=== PATIENT | female | born 1930 | race Caucasian/White ===

== ENCOUNTER 2018-08-21 15:36 | Observation (INO) ==
[2018-08-21 16:42] LABS: Basophils % 0.6 % (0.0-0.8); Eosinophils # 0.1 10*3/uL (0.0-0.87); Eosinophils % 1.2 % (0.00-10.9); Hemoglobin 12.5 GM/DL (12.0-16.0); Immature Granulocytes % 0.2 %; Immature Granulocytes Absolute 0.01 #; Lymphocytes # 1.4 10*3/uL (1.4-4.0); Lymphocytes % 27.3 % (21.3-54.2); Mean Corpuscular HGB Conc 32.1 GM/DL (32-36); Mean Corpuscular Volume 95.4 FL (87-102); Mean Platelet Volume 10.7 FL (9.6-12.0); Neutrophils % 59.7 % (38.7-73.9); Platelet Count 216 T/CUMM (130-400); Red Blood Count 4.09 MC/CUMM (3.8-5.5); Red Cell Distribution Width 13.9 % (9.3-17.3); White Blood Count 5.1 T/CUMM (4-12)
[2018-08-21 16:57] LABS: Alanine Aminotransferase 17 U/L (13-56); Albumin 2.9 G/DL (3.4-5.0); Alkaline Phosphatase 116 U/L (45-117); Aspartate Amino Transferase 26 U/L (0-37); Blood Urea Nitrogen 8 MG/DL (7-18); Calcium 8.9 MG/DL (8.5-10.1); Glucose 84 MG/DL (74-106); Osmolality,Calculated 275.4 MOS/KG (273-304); Total Protein 7.1 G/DL (6.4-8.3)
[2018-08-21] MEDS ORDERED: traMADol 50 MG TABLET PO PRN (17:36)
[2018-08-21] MEDS ORDERED: ONDANSETRON 4 MG/2 ML VIAL IV PRN (17:36)
[2018-08-21] MEDS ORDERED: ACETAMINOPHEN 325 MG TABLET PO PRN (17:36)
[2018-08-21] MEDS ORDERED: FUROSEMIDE 40 MG/4 ML VIAL IV STA (18:26)
[2018-08-21] MEDS: SODIUM CHLORIDE 0.9% 1,000 ML IV SCH (19:03)
[2018-08-21] MEDS: DOCUSATE SODIUM 100 MG CAPSULE PO SCH (20:56)
[2018-08-21] MEDS ORDERED: ENOXAPARIN 40 MG/0.4 ML SYRINGE SUBCUT SCH (21:00)
[2018-08-22 04:37] LABS: Basophils # 0.1 10*3/uL (0.0-0.2); Basophils % 0.9 % (0.0-0.8); Eosinophils # 0.1 10*3/uL (0.0-0.87); Eosinophils % 1.4 % (0.00-10.9); Hematocrit 36.3 VOL% (35.7-47.0); Immature Granulocytes % 0.2 %; Immature Granulocytes Absolute 0.01 #; Lymphocytes # 1.5 10*3/uL (1.4-4.0); Lymphocytes % 26.4 % (21.3-54.2); Mean Corpuscular HGB Conc 33.1 GM/DL (32-36); Mean Corpuscular Volume 94.3 FL (87-102); Mean Platelet Volume 11.2 FL (9.6-12.0); Monocytes % 13.4 % (1.7-12.7); Neutrophils % 57.7 % (38.7-73.9); Platelet Count 205 T/CUMM (130-400); Red Blood Count 3.85 MC/CUMM (3.8-5.5); Red Cell Distribution Width 13.9 % (9.3-17.3); White Blood Count 5.5 T/CUMM (4-12)
[2018-08-22 05:02] LABS: Albumin 2.7 G/DL (3.4-5.0); Calcium 8.2 MG/DL (8.5-10.1); Osmolality,Calculated 276.4 MOS/KG (273-304); Total Protein 6.3 G/DL (6.4-8.3)
[2018-08-22] MEDS ORDERED: POTASSIUM CHLORIDE RIDER 10 MEQ in PREMIX 1 EACH IV PRN (07:40)
[2018-08-22] MEDS: DOCUSATE SODIUM 100 MG CAPSULE PO SCH ×2 (08:43→21:33)
[2018-08-22] MEDS: PANTOPRAZOLE 40 MG TABLET PO SCH (08:43)
[2018-08-22] MEDS: POTASSIUM CHLORIDE 20 MEQ TABLET PO PRN ×3 (08:43→15:46)
[2018-08-22] MEDS ORDERED: traMADol 50 MG TABLET PO PRN (11:37)
[2018-08-22] MEDS: RIVAROXABAN 20 MG TABLET PO SCH (15:46)
[2018-08-22] MEDS: SODIUM CHLORIDE 0.9% 1,000 ML IV SCH (15:48)
[2018-08-22] MEDS: BACITRACIN OINT 0.9 GM PACK TOP SCH (15:48)
[2018-08-22] MEDS ORDERED: APIXABAN 5 MG TABLET PO SCH (21:00)
[2018-08-23 05:23] LABS: Basophils % 0.8 % (0.0-0.8); Eosinophils # 0.1 10*3/uL (0.0-0.87); Eosinophils % 2.9 % (0.00-10.9); Hematocrit 36.1 VOL% (35.7-47.0); Hemoglobin 11.8 GM/DL (12.0-16.0); Immature Granulocytes % 0.4 %; Immature Granulocytes Absolute 0.02 #; Lymphocytes # 1.3 10*3/uL (1.4-4.0); Lymphocytes % 26.5 % (21.3-54.2); Mean Corpuscular HGB Conc 32.7 GM/DL (32-36); Mean Corpuscular Volume 95.5 FL (87-102); Mean Platelet Volume 11.4 FL (9.6-12.0); Monocytes % 11.5 % (1.7-12.7); Neutrophils % 57.9 % (38.7-73.9); Platelet Count 190 T/CUMM (130-400); Red Blood Count 3.78 MC/CUMM (3.8-5.5); Red Cell Distribution Width 14.1 % (9.3-17.3); White Blood Count 4.8 T/CUMM (4-12)
[2018-08-23] MEDS ORDERED: PANTOPRAZOLE 40 MG TABLET PO SCH (09:00)
[2018-08-23] MEDS: DIGOXIN 0.125 MG TABLET PO SCH (09:26)
[2018-08-23] MEDS: CARVEDILOL 12.5 MG TABLET PO SCH ×2 (09:26→16:43)
[2018-08-23] MEDS: POTASSIUM CHLORIDE 20 MEQ TABLET PO PRN (09:27)
[2018-08-23] MEDS: DOCUSATE SODIUM 100 MG CAPSULE PO SCH ×2 (09:27→20:51)
[2018-08-23] MEDS: RIVAROXABAN 20 MG TABLET PO SCH (09:28)
[2018-08-23] MEDS: BACITRACIN OINT 0.9 GM PACK TOP SCH (09:28)
[2018-08-23] MEDS: PANTOPRAZOLE 40 MG TABLET PO SCH (09:28)
[2018-08-23] MEDS: ESCITALOPRAM 10 MG TABLET PO SCH (09:29)
[2018-08-23] MEDS: MULTIVITAMIN (BEROCCA) TABLET PO SCH (09:29)
[2018-08-23] MEDS: POTASSIUM CHLORIDE 10 MEQ TABLET PO SCH (10:40)
[2018-08-23] MEDS: SODIUM CHLORIDE 0.9% 1,000 ML IV SCH (14:21)
[2018-08-23] MEDS: SIMVASTATIN 10 MG TABLET PO SCH (20:51)
[2018-08-24 05:34] LABS: Basophils % 0.7 % (0.0-0.8); Eosinophils # 0.3 10*3/uL (0.0-0.87); Eosinophils % 5.4 % (0.00-10.9); Hematocrit 37.3 VOL% (35.7-47.0); Hemoglobin 11.8 GM/DL (12.0-16.0); Immature Granulocytes % 0.2 %; Immature Granulocytes Absolute 0.01 #; Lymphocytes # 1.6 10*3/uL (1.4-4.0); Lymphocytes % 29.7 % (21.3-54.2); Mean Corpuscular HGB Conc 31.6 GM/DL (32-36); Mean Corpuscular Volume 96.4 FL (87-102); Mean Platelet Volume 11.1 FL (9.6-12.0); Monocytes % 11.9 % (1.7-12.7); Neutrophils % 52.1 % (38.7-73.9); Platelet Count 199 T/CUMM (130-400); Red Blood Count 3.87 MC/CUMM (3.8-5.5); Red Cell Distribution Width 13.9 % (9.3-17.3); White Blood Count 5.4 T/CUMM (4-12)
[2018-08-24] MEDS: CARVEDILOL 12.5 MG TABLET PO SCH ×2 (08:54→17:23)
[2018-08-24] MEDS: ASPIRIN EC 81 MG TABLET PO SCH (08:54)
[2018-08-24] MEDS: MULTIVITAMIN (BEROCCA) TABLET PO SCH (08:54)
[2018-08-24] MEDS: RIVAROXABAN 20 MG TABLET PO SCH (08:54)
[2018-08-24] MEDS: POTASSIUM CHLORIDE 10 MEQ TABLET PO SCH (08:54)
[2018-08-24] MEDS: DOCUSATE SODIUM 100 MG CAPSULE PO SCH ×2 (08:54→20:10)
[2018-08-24] MEDS: SPIRONOLACTONE 25 MG TABLET PO SCH (08:54)
[2018-08-24] MEDS: PANTOPRAZOLE 40 MG TABLET PO SCH (08:55)
[2018-08-24] MEDS: ESCITALOPRAM 10 MG TABLET PO SCH (09:00)
[2018-08-24] MEDS: BACITRACIN OINT 0.9 GM PACK TOP SCH (09:05)
[2018-08-24] MEDS: SODIUM CHLORIDE 0.9% 1,000 ML IV SCH ×2 (10:47→11:30)
[2018-08-24 14:46] LABS: Apearance,Urine CLOUDY (Clear); Bacteria,Urine Many /HPF (Few); Bilirubin,Urine Negative (Negative); Blood, Urine Small mg/dL (Negative); Glucose,Urine (UA) Negative (Negative); Ketones,Urine 5 mg/dL (Negative); Mucus,Urine Occasional /LPF (Occasional); Nitrite,Urine Positive (Negative); Protein,Urine Negative; RBC,Urine 47 /HPF (0-4); Squamous Epithelial Cell,Urine Occasional /HPF (0-10); Urine Color Yellow (Yellow); Urine Specific Gravity 1.017 (1.001-1.035); Urine Urobilinogen < 2.0 EU/DL (0.2-1.0); WBC,Urine 697 /HPF (0-6)
[2018-08-24] MEDS: SIMVASTATIN 10 MG TABLET PO SCH (20:10)
[2018-08-25] MEDS: CARVEDILOL 12.5 MG TABLET PO SCH ×2 (08:41→17:31)
[2018-08-25] MEDS: RIVAROXABAN 20 MG TABLET PO SCH (08:41)
[2018-08-25] MEDS: MULTIVITAMIN (BEROCCA) TABLET PO SCH (08:41)
[2018-08-25] MEDS: cefTRIAXone 1,000 MG in SYRINGE 1 EACH IV SCH (08:41)
[2018-08-25] MEDS: SPIRONOLACTONE 25 MG TABLET PO SCH (08:42)
[2018-08-25] MEDS: DIGOXIN 0.125 MG TABLET PO SCH (08:42)
[2018-08-25] MEDS: POTASSIUM CHLORIDE 10 MEQ TABLET PO SCH (08:42)
[2018-08-25] MEDS: DOCUSATE SODIUM 100 MG CAPSULE PO SCH ×2 (08:43→21:24)
[2018-08-25] MEDS: PANTOPRAZOLE 40 MG TABLET PO SCH (08:43)
[2018-08-25] MEDS: ESCITALOPRAM 10 MG TABLET PO SCH (08:43)
[2018-08-25] MEDS: ASPIRIN EC 81 MG TABLET PO SCH (08:43)
[2018-08-25] MEDS: SODIUM CHLORIDE 0.9% 1,000 ML IV SCH (11:52)
[2018-08-25] MEDS: BACITRACIN OINT 0.9 GM PACK TOP SCH (11:52)
[2018-08-25] MEDS: SIMVASTATIN 10 MG TABLET PO SCH (21:24)
[2018-08-26] MEDS: SODIUM CHLORIDE 0.9% 1,000 ML IV SCH ×2 (02:00→22:08)
[2018-08-26] MEDS: cefTRIAXone 1,000 MG in SYRINGE 1 EACH IV SCH (08:19)
[2018-08-26] MEDS: RIVAROXABAN 20 MG TABLET PO SCH (08:20)
[2018-08-26] MEDS: DIGOXIN 0.125 MG TABLET PO SCH (08:20)
[2018-08-26] MEDS: SPIRONOLACTONE 25 MG TABLET PO SCH (08:20)
[2018-08-26] MEDS: POTASSIUM CHLORIDE 10 MEQ TABLET PO SCH (08:20)
[2018-08-26] MEDS: ESCITALOPRAM 10 MG TABLET PO SCH (08:20)
[2018-08-26] MEDS: DOCUSATE SODIUM 100 MG CAPSULE PO SCH ×2 (08:20→21:03)
[2018-08-26] MEDS: ASPIRIN EC 81 MG TABLET PO SCH (08:21)
[2018-08-26] MEDS: PANTOPRAZOLE 40 MG TABLET PO SCH (08:21)
[2018-08-26] MEDS: CARVEDILOL 12.5 MG TABLET PO SCH ×2 (08:21→17:40)
[2018-08-26] MEDS: MULTIVITAMIN (BEROCCA) TABLET PO SCH (08:24)
[2018-08-26] MEDS: BACITRACIN OINT 0.9 GM PACK TOP SCH (17:40)
[2018-08-26] MEDS: SIMVASTATIN 10 MG TABLET PO SCH (21:03)
[2018-08-27] MEDS: cefTRIAXone 1,000 MG in SYRINGE 1 EACH IV SCH (06:35)
[2018-08-27] MEDS: MULTIVITAMIN (BEROCCA) TABLET PO SCH (08:57)
[2018-08-27] MEDS: CARVEDILOL 12.5 MG TABLET PO SCH ×2 (08:57→17:26)
[2018-08-27] MEDS: ESCITALOPRAM 10 MG TABLET PO SCH (08:57)
[2018-08-27] MEDS: DOCUSATE SODIUM 100 MG CAPSULE PO SCH (08:58)
[2018-08-27] MEDS: ASPIRIN EC 81 MG TABLET PO SCH (08:58)
[2018-08-27] MEDS: BACITRACIN OINT 0.9 GM PACK TOP SCH (08:58)
[2018-08-27] MEDS: SPIRONOLACTONE 25 MG TABLET PO SCH (08:58)
[2018-08-27] MEDS: POTASSIUM CHLORIDE 10 MEQ TABLET PO SCH (08:58)
[2018-08-27] MEDS: PANTOPRAZOLE 40 MG TABLET PO SCH (08:58)
[2018-08-27] MEDS: RIVAROXABAN 20 MG TABLET PO SCH (08:58)
[2018-08-27 15:45] VITALS: BP 142/96
== END 2018-08-27 18:35 | disposition home or self-care (01) ==
LOC: N.ED 15:36 → N.EDINP 15:36 → N.2E 18:25
PROVIDERS: ADMIT Family Medicine; ATTEND Family Medicine

== ENCOUNTER 2018-08-31 12:06 | Inpatient (IN) ==
[2018-08-31] MEDS ORDERED: THIAMINE INJ 100 MG, FOLIC ACID INJ 1 MG, MULTIVITAMIN INJ 10 ML in SODIUM CHLORIDE 0.9... IV ONE (13:36)
[2018-08-31 14:07] LABS: Basophils # 0.1 10*3/uL (0.0-0.2); Basophils % 1.3 % (0.0-0.8); Eosinophils # 0.1 10*3/uL (0.0-0.87); Eosinophils % 1.7 % (0.00-10.9); Hematocrit 37.6 VOL% (35.7-47.0); Immature Granulocytes % 0.2 %; Immature Granulocytes Absolute 0.01 #; Lymphocytes # 1.6 10*3/uL (1.4-4.0); Lymphocytes % 31.4 % (21.3-54.2); Mean Corpuscular HGB Conc 31.9 GM/DL (32-36); Mean Corpuscular Volume 96.7 FL (87-102); Mean Platelet Volume 11.1 FL (9.6-12.0); Neutrophils % 54.4 % (38.7-73.9); Platelet Count 271 T/CUMM (130-400); Red Blood Count 3.89 MC/CUMM (3.8-5.5); Red Cell Distribution Width 14.2 % (9.3-17.3); White Blood Count 5.2 T/CUMM (4-12)
[2018-08-31 14:23] LABS: Bilirubin,Total 0.4 MG/DL (0.2-1.0); Total Protein 7.1 G/DL (6.4-8.3)
[2018-08-31] MEDS: chlordiazePOXIDE 25 MG CAPSULE PO SCH ×2 (14:34→22:33)
[2018-08-31] MEDS ORDERED: SKIN HEALING OINT (AQUAPHOR) 50 GM TUBE TOP PRN (15:23)
[2018-08-31] MEDS: SIMVASTATIN 10 MG TABLET PO SCH (22:33)
[2018-08-31] MEDS: DOCUSATE SODIUM 100 MG CAPSULE PO SCH (22:33)
[2018-08-31] MEDS: CARVEDILOL 12.5 MG TABLET PO SCH (22:33)
[2018-09-01] MEDS: chlordiazePOXIDE 25 MG CAPSULE PO SCH ×3 (03:39→20:56)
[2018-09-01] MEDS: ASPIRIN EC 81 MG TABLET PO SCH (08:28)
[2018-09-01] MEDS: DOCUSATE SODIUM 100 MG CAPSULE PO SCH ×2 (08:28→20:56)
[2018-09-01] MEDS: MULTIVITAMIN (BEROCCA) TABLET PO SCH (08:28)
[2018-09-01] MEDS: PANTOPRAZOLE 40 MG TABLET PO SCH (08:29)
[2018-09-01] MEDS: CARVEDILOL 12.5 MG TABLET PO SCH ×2 (08:29→20:56)
[2018-09-01] MEDS: RIVAROXABAN 20 MG TABLET PO SCH (08:29)
[2018-09-01] MEDS: POTASSIUM CHLORIDE 10 MEQ TABLET PO SCH (08:29)
[2018-09-01] MEDS: SPIRONOLACTONE 25 MG TABLET PO SCH (08:29)
[2018-09-01] MEDS: ESCITALOPRAM 10 MG TABLET PO SCH (08:29)
[2018-09-01] MEDS: DIGOXIN 0.125 MG TABLET PO SCH (13:52)
[2018-09-01] MEDS: SIMVASTATIN 10 MG TABLET PO SCH (20:56)
[2018-09-02] MEDS: chlordiazePOXIDE 25 MG CAPSULE PO SCH ×4 (07:02→22:09)
[2018-09-02] MEDS: RIVAROXABAN 20 MG TABLET PO SCH (09:34)
[2018-09-02] MEDS: SPIRONOLACTONE 25 MG TABLET PO SCH (09:35)
[2018-09-02] MEDS: MULTIVITAMIN (BEROCCA) TABLET PO SCH (09:35)
[2018-09-02] MEDS: PANTOPRAZOLE 40 MG TABLET PO SCH (09:35)
[2018-09-02] MEDS: CARVEDILOL 12.5 MG TABLET PO SCH ×2 (09:35→21:29)
[2018-09-02] MEDS: POTASSIUM CHLORIDE 10 MEQ TABLET PO SCH (09:35)
[2018-09-02] MEDS: ESCITALOPRAM 10 MG TABLET PO SCH (09:35)
[2018-09-02] MEDS: DOCUSATE SODIUM 100 MG CAPSULE PO SCH ×2 (09:35→21:29)
[2018-09-02] MEDS: ASPIRIN EC 81 MG TABLET PO SCH (09:35)
[2018-09-02] MEDS: DIGOXIN 0.125 MG TABLET PO SCH (14:52)
[2018-09-02] MEDS: SIMVASTATIN 10 MG TABLET PO SCH (21:29)
[2018-09-03] MEDS: chlordiazePOXIDE 25 MG CAPSULE PO SCH ×2 (07:24→13:55)
[2018-09-03 11:39] LABS: Basophils # 0.1 10*3/uL (0.0-0.2); Basophils % 0.9 % (0.0-0.8); Eosinophils # 0.2 10*3/uL (0.0-0.87); Hematocrit 39.5 VOL% (35.7-47.0); Hemoglobin 12.7 GM/DL (12.0-16.0); Immature Granulocytes % 0.4 %; Immature Granulocytes Absolute 0.02 #; Lymphocytes # 1.5 10*3/uL (1.4-4.0); Lymphocytes % 28.2 % (21.3-54.2); Mean Corpuscular HGB Conc 32.2 GM/DL (32-36); Mean Corpuscular Volume 95.6 FL (87-102); Monocytes % 9.5 % (1.7-12.7); Platelet Count 262 T/CUMM (130-400); Red Blood Count 4.13 MC/CUMM (3.8-5.5); Red Cell Distribution Width 14.6 % (9.3-17.3); White Blood Count 5.5 T/CUMM (4-12)
[2018-09-03] MEDS: SPIRONOLACTONE 25 MG TABLET PO SCH (11:55)
[2018-09-03] MEDS: RIVAROXABAN 20 MG TABLET PO SCH (11:55)
[2018-09-03] MEDS: DOCUSATE SODIUM 100 MG CAPSULE PO SCH ×2 (11:55→20:23)
[2018-09-03] MEDS: ESCITALOPRAM 10 MG TABLET PO SCH (11:55)
[2018-09-03] MEDS: PANTOPRAZOLE 40 MG TABLET PO SCH (11:55)
[2018-09-03] MEDS: CARVEDILOL 12.5 MG TABLET PO SCH ×2 (11:56→20:23)
[2018-09-03] MEDS: MULTIVITAMIN (BEROCCA) TABLET PO SCH (11:56)
[2018-09-03] MEDS: POTASSIUM CHLORIDE 10 MEQ TABLET PO SCH (11:56)
[2018-09-03] MEDS: ASPIRIN EC 81 MG TABLET PO SCH (11:56)
[2018-09-03 12:09] LABS: Calcium 8.5 MG/DL (8.5-10.1); Osmolality,Calculated 268.1 MOS/KG (273-304)
[2018-09-03] MEDS ORDERED: ACETAMINOPHEN 325 MG TABLET PO PRN (20:14)
[2018-09-03] MEDS: SIMVASTATIN 10 MG TABLET PO SCH (20:23)
[2018-09-04 05:59] LABS: Basophils % 0.7 % (0.0-0.8); Eosinophils # 0.2 10*3/uL (0.0-0.87); Eosinophils % 3.8 % (0.00-10.9); Hemoglobin 12.6 GM/DL (12.0-16.0); Immature Granulocytes % 0.2 %; Immature Granulocytes Absolute 0.01 #; Lymphocytes # 2.1 10*3/uL (1.4-4.0); Lymphocytes % 35.5 % (21.3-54.2); Mean Corpuscular HGB Conc 32.3 GM/DL (32-36); Mean Corpuscular Volume 94.9 FL (87-102); Mean Platelet Volume 11.8 FL (9.6-12.0); Monocytes % 9.7 % (1.7-12.7); Neutrophils % 50.1 % (38.7-73.9); Platelet Count 258 T/CUMM (130-400); Red Blood Count 4.11 MC/CUMM (3.8-5.5); Red Cell Distribution Width 14.8 % (9.3-17.3); White Blood Count 5.8 T/CUMM (4-12)
[2018-09-04 06:07] LABS: Calcium 8.9 MG/DL (8.5-10.1); Osmolality,Calculated 278.4 MOS/KG (273-304)
[2018-09-04] MEDS: POTASSIUM CHLORIDE 10 MEQ TABLET PO SCH (07:59)
[2018-09-04] MEDS: CARVEDILOL 12.5 MG TABLET PO SCH ×2 (08:00→20:37)
[2018-09-04] MEDS: RIVAROXABAN 20 MG TABLET PO SCH (08:00)
[2018-09-04] MEDS: ESCITALOPRAM 10 MG TABLET PO SCH (08:00)
[2018-09-04] MEDS: SPIRONOLACTONE 25 MG TABLET PO SCH (08:00)
[2018-09-04] MEDS: PANTOPRAZOLE 40 MG TABLET PO SCH (08:00)
[2018-09-04] MEDS: MULTIVITAMIN (BEROCCA) TABLET PO SCH (08:00)
[2018-09-04] MEDS: ASPIRIN EC 81 MG TABLET PO SCH (08:01)
[2018-09-04] MEDS: DOCUSATE SODIUM 100 MG CAPSULE PO SCH ×2 (08:01→20:37)
[2018-09-04 16:06] LABS: Urine Color Yellow (Yellow)
[2018-09-04 16:07] LABS: Apearance,Urine Clear (Clear); Bilirubin,Urine Negative (Negative); Blood, Urine Negative (Negative); Glucose,Urine (UA) Negative (Negative); Ketones,Urine Negative (Negative); Nitrite,Urine Negative (Negative); Protein,Urine Negative; Urine Specific Gravity 1.013 (1.001-1.035); Urine Urobilinogen < 2.0 EU/DL (0.2-1.0)
[2018-09-04 16:16] LABS: Barbiturates Screen,Urine Negative (Negative); Benzodiazepines Screen,Urine Positive (Negative); Cannabinoid Screen,Urine Negative (Negative); Opiate Screen,Urine Negative (Negative); Phencyclidine Screen,Urine Negative (Negative)
[2018-09-04 18:04] LABS: Folate 12.6 NG/ML (5.4-24.0)
[2018-09-04] MEDS: DIGOXIN 0.125 MG TABLET PO SCH (18:05)
[2018-09-04] MEDS: SIMVASTATIN 10 MG TABLET PO SCH (20:37)
[2018-09-05 07:03] LABS: Basophils % 0.6 % (0.0-0.8); Eosinophils # 0.2 10*3/uL (0.0-0.87); Eosinophils % 2.9 % (0.00-10.9); Hematocrit 39.9 VOL% (35.7-47.0); Hemoglobin 12.5 GM/DL (12.0-16.0); Immature Granulocytes % 0.2 %; Immature Granulocytes Absolute 0.01 #; Lymphocytes # 1.8 10*3/uL (1.4-4.0); Lymphocytes % 26.4 % (21.3-54.2); Mean Corpuscular HGB Conc 31.3 GM/DL (32-36); Mean Corpuscular Volume 97.6 FL (87-102); Mean Platelet Volume 10.8 FL (9.6-12.0); Monocytes % 8.9 % (1.7-12.7); Platelet Count 264 T/CUMM (130-400); Red Blood Count 4.09 MC/CUMM (3.8-5.5); Red Cell Distribution Width 14.7 % (9.3-17.3); White Blood Count 6.6 T/CUMM (4-12)
[2018-09-05 07:30] LABS: Calcium 9.1 MG/DL (8.5-10.1); Osmolality,Calculated 282.3 MOS/KG (273-304)
[2018-09-05] MEDS: ESCITALOPRAM 10 MG TABLET PO SCH (08:44)
[2018-09-05] MEDS: SPIRONOLACTONE 25 MG TABLET PO SCH (08:44)
[2018-09-05] MEDS: DOCUSATE SODIUM 100 MG CAPSULE PO SCH ×2 (08:44→21:26)
[2018-09-05] MEDS: ASPIRIN EC 81 MG TABLET PO SCH (08:44)
[2018-09-05] MEDS: CARVEDILOL 12.5 MG TABLET PO SCH ×2 (08:44→20:41)
[2018-09-05] MEDS: POTASSIUM CHLORIDE 10 MEQ TABLET PO SCH (08:44)
[2018-09-05] MEDS: PANTOPRAZOLE 40 MG TABLET PO SCH (08:44)
[2018-09-05] MEDS: MULTIVITAMIN (BEROCCA) TABLET PO SCH (08:44)
[2018-09-05] MEDS: RIVAROXABAN 20 MG TABLET PO SCH (08:44)
[2018-09-05] MEDS: DIGOXIN 0.125 MG TABLET PO SCH (14:34)
[2018-09-05] MEDS: NYSTATIN 500,000 UNIT/5 ML UDCUP SWISH/SWAL SCH ×2 (17:16→20:41)
[2018-09-05] MEDS: SIMVASTATIN 10 MG TABLET PO SCH (20:41)
[2018-09-06 04:01] LABS: Basophils % 0.6 % (0.0-0.8); Eosinophils # 0.2 10*3/uL (0.0-0.87); Eosinophils % 2.1 % (0.00-10.9); Hematocrit 39.7 VOL% (35.7-47.0); Hemoglobin 12.5 GM/DL (12.0-16.0); Immature Granulocytes % 0.3 %; Immature Granulocytes Absolute 0.02 #; Lymphocytes # 1.9 10*3/uL (1.4-4.0); Lymphocytes % 26.6 % (21.3-54.2); Mean Corpuscular HGB Conc 31.5 GM/DL (32-36); Mean Corpuscular Volume 96.6 FL (87-102); Neutrophils % 62.4 % (38.7-73.9); Platelet Count 263 T/CUMM (130-400); Red Blood Count 4.11 MC/CUMM (3.8-5.5); Red Cell Distribution Width 14.6 % (9.3-17.3)
[2018-09-06 04:20] LABS: Calcium 9.1 MG/DL (8.5-10.1); Osmolality,Calculated 281.4 MOS/KG (273-304)
[2018-09-06] MEDS: ESCITALOPRAM 10 MG TABLET PO SCH (09:04)
[2018-09-06] MEDS: DOCUSATE SODIUM 100 MG CAPSULE PO SCH ×2 (09:04→21:05)
[2018-09-06] MEDS: NYSTATIN 500,000 UNIT/5 ML UDCUP SWISH/SWAL SCH ×4 (09:04→21:08)
[2018-09-06] MEDS: MULTIVITAMIN (BEROCCA) TABLET PO SCH (09:04)
[2018-09-06] MEDS: RIVAROXABAN 20 MG TABLET PO SCH (09:04)
[2018-09-06] MEDS: POTASSIUM CHLORIDE 10 MEQ TABLET PO SCH (09:04)
[2018-09-06] MEDS: ASPIRIN EC 81 MG TABLET PO SCH (09:05)
[2018-09-06] MEDS: SPIRONOLACTONE 25 MG TABLET PO SCH (09:05)
[2018-09-06] MEDS: PANTOPRAZOLE 40 MG TABLET PO SCH (09:05)
[2018-09-06] MEDS: CARVEDILOL 12.5 MG TABLET PO SCH ×2 (09:05→21:05)
[2018-09-06] MEDS: DIGOXIN 0.125 MG TABLET PO SCH (15:44)
[2018-09-06] MEDS: SIMVASTATIN 10 MG TABLET PO SCH (21:05)
[2018-09-07 05:27] LABS: Basophils % 0.5 % (0.0-0.8); Eosinophils # 0.3 10*3/uL (0.0-0.87); Eosinophils % 3.9 % (0.00-10.9); Hematocrit 41.5 VOL% (35.7-47.0); Immature Granulocytes % 0.4 %; Immature Granulocytes Absolute 0.03 #; Lymphocytes % 24.3 % (21.3-54.2); Mean Corpuscular HGB Conc 31.3 GM/DL (32-36); Mean Platelet Volume 11.4 FL (9.6-12.0); Monocytes % 9.2 % (1.7-12.7); Neutrophils % 61.7 % (38.7-73.9); Platelet Count 249 T/CUMM (130-400); Red Blood Count 4.28 MC/CUMM (3.8-5.5); Red Cell Distribution Width 14.6 % (9.3-17.3); White Blood Count 8.2 T/CUMM (4-12)
[2018-09-07 05:37] LABS: Calcium 9.6 MG/DL (8.5-10.1); Osmolality,Calculated 281.4 MOS/KG (273-304)
[2018-09-07] MEDS: CARVEDILOL 12.5 MG TABLET PO SCH ×2 (08:57→20:34)
[2018-09-07] MEDS: ESCITALOPRAM 10 MG TABLET PO SCH (08:58)
[2018-09-07] MEDS: MULTIVITAMIN (BEROCCA) TABLET PO SCH (08:58)
[2018-09-07] MEDS: ASPIRIN EC 81 MG TABLET PO SCH (08:58)
[2018-09-07] MEDS: SPIRONOLACTONE 25 MG TABLET PO SCH (08:58)
[2018-09-07] MEDS: POTASSIUM CHLORIDE 10 MEQ TABLET PO SCH (08:58)
[2018-09-07] MEDS: RIVAROXABAN 20 MG TABLET PO SCH (08:58)
[2018-09-07] MEDS: PANTOPRAZOLE 40 MG TABLET PO SCH (08:58)
[2018-09-07] MEDS: NYSTATIN 500,000 UNIT/5 ML UDCUP SWISH/SWAL SCH ×4 (08:59→20:33)
[2018-09-07] MEDS: DOCUSATE SODIUM 100 MG CAPSULE PO SCH ×2 (08:59→20:33)
[2018-09-07] MEDS: METHYLPHENIDATE 5 MG TABLET PO SCH (12:44)
[2018-09-07] MEDS: SIMVASTATIN 10 MG TABLET PO SCH (20:33)
[2018-09-08] MEDS: MULTIVITAMIN (BEROCCA) TABLET PO SCH (09:51)
[2018-09-08] MEDS: PANTOPRAZOLE 40 MG TABLET PO SCH (09:51)
[2018-09-08] MEDS: DOCUSATE SODIUM 100 MG CAPSULE PO SCH ×2 (09:51→20:11)
[2018-09-08] MEDS: CARVEDILOL 12.5 MG TABLET PO SCH ×2 (09:51→20:11)
[2018-09-08] MEDS: ASPIRIN EC 81 MG TABLET PO SCH (09:51)
[2018-09-08] MEDS: RIVAROXABAN 20 MG TABLET PO SCH (09:51)
[2018-09-08] MEDS: ESCITALOPRAM 10 MG TABLET PO SCH (09:51)
[2018-09-08] MEDS: SPIRONOLACTONE 25 MG TABLET PO SCH (09:51)
[2018-09-08] MEDS: NYSTATIN 500,000 UNIT/5 ML UDCUP SWISH/SWAL SCH ×3 (09:52→20:11)
[2018-09-08] MEDS: POTASSIUM CHLORIDE 10 MEQ TABLET PO SCH (09:52)
[2018-09-08] MEDS: METHYLPHENIDATE 5 MG TABLET PO SCH (09:52)
[2018-09-08] MEDS: SIMVASTATIN 10 MG TABLET PO SCH (20:11)
[2018-09-09] MEDS: POTASSIUM CHLORIDE 10 MEQ TABLET PO SCH (11:27)
[2018-09-09] MEDS: PANTOPRAZOLE 40 MG TABLET PO SCH (11:27)
[2018-09-09] MEDS: CARVEDILOL 12.5 MG TABLET PO SCH ×2 (11:27→20:54)
[2018-09-09] MEDS: DOCUSATE SODIUM 100 MG CAPSULE PO SCH ×2 (11:27→20:54)
[2018-09-09] MEDS: RIVAROXABAN 20 MG TABLET PO SCH (11:27)
[2018-09-09] MEDS: SPIRONOLACTONE 25 MG TABLET PO SCH (11:28)
[2018-09-09] MEDS: NYSTATIN 500,000 UNIT/5 ML UDCUP SWISH/SWAL SCH ×4 (11:28→20:54)
[2018-09-09] MEDS: ASPIRIN EC 81 MG TABLET PO SCH (11:28)
[2018-09-09] MEDS: METHYLPHENIDATE 5 MG TABLET PO SCH (11:28)
[2018-09-09] MEDS: MULTIVITAMIN (BEROCCA) TABLET PO SCH (11:28)
[2018-09-09] MEDS: ESCITALOPRAM 10 MG TABLET PO SCH (11:28)
[2018-09-09] MEDS: SIMVASTATIN 10 MG TABLET PO SCH (20:54)
[2018-09-10] MEDS: METHYLPHENIDATE 5 MG TABLET PO SCH (08:48)
[2018-09-10] MEDS: DOCUSATE SODIUM 100 MG CAPSULE PO SCH ×2 (08:48→20:32)
[2018-09-10] MEDS: PANTOPRAZOLE 40 MG TABLET PO SCH (08:48)
[2018-09-10] MEDS: MULTIVITAMIN (BEROCCA) TABLET PO SCH (08:48)
[2018-09-10] MEDS: RIVAROXABAN 20 MG TABLET PO SCH (08:48)
[2018-09-10] MEDS: POTASSIUM CHLORIDE 10 MEQ TABLET PO SCH (08:49)
[2018-09-10] MEDS: CARVEDILOL 12.5 MG TABLET PO SCH (08:49)
[2018-09-10] MEDS: ASPIRIN EC 81 MG TABLET PO SCH (08:49)
[2018-09-10] MEDS: NYSTATIN 500,000 UNIT/5 ML UDCUP SWISH/SWAL SCH ×4 (08:49→20:33)
[2018-09-10] MEDS: ESCITALOPRAM 10 MG TABLET PO SCH (08:49)
[2018-09-10] MEDS: SPIRONOLACTONE 25 MG TABLET PO SCH (08:49)
[2018-09-10] MEDS: SIMVASTATIN 10 MG TABLET PO SCH (20:32)
[2018-09-10] MEDS: CARVEDILOL 6.25 MG TABLET PO SCH (20:33)
[2018-09-11 05:58] LABS: Basophils % 0.6 % (0.0-0.8); Eosinophils # 0.3 10*3/uL (0.0-0.87); Eosinophils % 4.8 % (0.00-10.9); Hematocrit 37.6 VOL% (35.7-47.0); Hemoglobin 11.7 GM/DL (12.0-16.0); Immature Granulocytes % 0.3 %; Immature Granulocytes Absolute 0.02 #; Lymphocytes # 1.9 10*3/uL (1.4-4.0); Lymphocytes % 28.4 % (21.3-54.2); Mean Corpuscular HGB Conc 31.1 GM/DL (32-36); Mean Corpuscular Volume 97.2 FL (87-102); Mean Platelet Volume 11.5 FL (9.6-12.0); Neutrophils % 56.9 % (38.7-73.9); Platelet Count 229 T/CUMM (130-400); Red Blood Count 3.87 MC/CUMM (3.8-5.5); Red Cell Distribution Width 14.6 % (9.3-17.3); White Blood Count 6.7 T/CUMM (4-12)
[2018-09-11] MEDS: ESCITALOPRAM 10 MG TABLET PO SCH (08:33)
[2018-09-11] MEDS: MULTIVITAMIN (BEROCCA) TABLET PO SCH (08:33)
[2018-09-11] MEDS: METHYLPHENIDATE 5 MG TABLET PO SCH (08:33)
[2018-09-11] MEDS: RIVAROXABAN 20 MG TABLET PO SCH (08:33)
[2018-09-11] MEDS: PANTOPRAZOLE 40 MG TABLET PO SCH (08:33)
[2018-09-11] MEDS: SPIRONOLACTONE 25 MG TABLET PO SCH (08:33)
[2018-09-11] MEDS: CARVEDILOL 6.25 MG TABLET PO SCH (08:33)
[2018-09-11] MEDS: ASPIRIN EC 81 MG TABLET PO SCH (08:33)
[2018-09-11] MEDS: POTASSIUM CHLORIDE 10 MEQ TABLET PO SCH (08:34)
[2018-09-11] MEDS: NYSTATIN 500,000 UNIT/5 ML UDCUP SWISH/SWAL SCH (08:34)
[2018-09-11] MEDS: DOCUSATE SODIUM 100 MG CAPSULE PO SCH (08:34)
[2018-09-11 16:01] VITALS: BP 102/49
[2018-09-11] MEDS ORDERED: CARVEDILOL 3.125 MG TABLET PO SCH (21:00)
== END 2018-09-11 18:15 | disposition swing bed (61) | DRG 896 ==
LOC: SUATTDRO 12:37 → N.4E 12:37
PROVIDERS: ADMIT Family Medicine; ATTEND Internal Medicine

== ENCOUNTER 2019-07-30 19:22 | Inpatient (IN) ==
[2019-07-30] MEDS ORDERED: ALUM/MAG/SIMETH/LIDO VISC 1:1 30 ML BOTTLE PO STA (19:57)
[2019-07-30] MEDS ORDERED: ONDANSETRON 4 MG/2 ML VIAL IV STA (19:57)
[2019-07-30] MEDS ORDERED: PANTOPRAZOLE 40 MG VIAL IV STA (19:57)
[2019-07-30] MEDS ORDERED: HYDROmorphone 2 MG/1 ML VIAL IV STA (19:57)
[2019-07-30 20:19] LABS: Alanine Aminotransferase < 9 U/L (13-56); Alkaline Phosphatase 102 U/L (45-117); Amylase 60 U/L (25-115); Aspartate Amino Transferase 12 U/L (0-37); Bilirubin,Total < 0.39 MG/DL (0.2-1.0); Blood Urea Nitrogen 28 MG/DL (7-18); Calcium 8.4 MG/DL (8.5-10.1); Estimated Glom Filtration Rate 46 ML/MIN; Glucose 115 MG/DL (74-106); Total Protein 6.6 G/DL (6.4-8.3); Troponin I < 0.015 NG/ML (0.00-0.045)
[2019-07-30 20:34] LABS: Basophils % 0.2 % (0.0-0.8); Eosinophils % 0.1 % (0.00-10.9); Hematocrit 15.2 VOL% (35.7-47.0); Immature Granulocytes % 0.7 %; Lymphocytes # 2.1 10*3/uL (1.4-4.0); Lymphocytes % 14.8 % (21.3-54.2); Mean Corpuscular HGB Conc 30.9 GM/DL (32-36); Mean Platelet Volume 9.9 FL (9.6-12.0); Monocytes % 6.7 % (1.7-12.7); NRBC # 0.02 10*3/uL; Neutrophils % 77.5 % (38.7-73.9); Platelet Count 332 T/CUMM (130-400); White Blood Count 14.3 T/CUMM (4-12)
[2019-07-30 20:36] LABS: Hemoglobin 4.7 GM/DL (12.0-16.0)
[2019-07-30] MEDS ORDERED: SODIUM CHLORIDE 0.9% 1,000 ML IV PRN (21:31)
[2019-07-30] MEDS ORDERED: ONDANSETRON 4 MG/2 ML VIAL IV PRN (21:31)
[2019-07-30] MEDS ORDERED: HYDROmorphone 2 MG/1 ML VIAL IV PRN (21:31)
[2019-07-30] MEDS: SODIUM CHLORIDE 0.9% 1,000 ML IV SCH (21:40)
[2019-07-30 23:08] LABS: Apearance,Urine Slightly Hazy (Clear); Bacteria,Urine Many /HPF (Few); Bilirubin,Urine Negative (Negative); Blood, Urine Negative (Negative); Glucose,Urine (UA) Negative (Negative); Hyaline Casts,Urine 7 /LPF (0-3); Ketones,Urine Negative (Negative); Mucus,Urine Occasional /LPF (Occasional); Nitrite,Urine Negative (Negative); Protein,Urine Negative; RBC,Urine <1 /HPF (0-4); Squamous Epithelial Cell,Urine Occasional /HPF (0-10); Urine Color Yellow (Yellow); Urine Specific Gravity 1.017 (1.001-1.035); Urine Urobilinogen < 2.0 EU/DL (0.2-1.0); WBC,Urine 5 /HPF (0-6)
[2019-07-30] MEDS: DOCUSATE SODIUM 100 MG CAPSULE PO SCH (23:28)
[2019-07-30 23:33] LABS: Basophils % 0.1 % (0.0-0.8); Immature Granulocytes % 0.7 %; Immature Granulocytes Absolute 0.07 #; Lymphocytes # 1.7 10*3/uL (1.4-4.0); Lymphocytes % 16.9 % (21.3-54.2); Mean Corpuscular HGB Conc 30.4 GM/DL (32-36); Mean Corpuscular Volume 97.2 FL (87-102); Mean Platelet Volume 10.1 FL (9.6-12.0); Monocytes % 6.3 % (1.7-12.7); Platelet Count 281 T/CUMM (130-400); Red Blood Count 1.42 MC/CUMM (3.8-5.5); Red Cell Distribution Width 15.8 % (9.3-17.3); White Blood Count 10.1 T/CUMM (4-12)
[2019-07-30 23:53] LABS: Hematocrit 13.8 VOL% (35.7-47.0); Hemoglobin 4.2 GM/DL (12.0-16.0)
[2019-07-31] MEDS ORDERED: FUROSEMIDE 20 MG/2 ML VIAL IV ONE (02:20)
[2019-07-31 08:22] LABS: Hematocrit 23.4 VOL% (35.7-47.0); Hemoglobin 7.6 GM/DL (12.0-16.0)
[2019-07-31] MEDS: SODIUM CHLORIDE 0.9% 1,000 ML IV SCH ×3 (08:31→20:58)
[2019-07-31 08:33] LABS: PT Patient Result 10.7 SECS (9.8-11.9)
[2019-07-31 08:40] LABS: Alanine Aminotransferase < 9 U/L (13-56); Albumin 2.9 G/DL (3.4-5.0); Alkaline Phosphatase 96 U/L (45-117); Aspartate Amino Transferase 11 U/L (0-37); Blood Urea Nitrogen 26 MG/DL (7-18); Calcium 8.4 MG/DL (8.5-10.1); Estimated Glom Filtration Rate 60 ML/MIN; Glucose 101 MG/DL (74-106); HDL Cholesterol 22 MG/DL (40-60); Risk Ratio 5.41; Total Protein 6.3 G/DL (6.4-8.3); Triglycerides 231 MG/DL (2-150); VLDL CHOLESTEROL 46.2 MG/DL
[2019-07-31] MEDS ORDERED: PANTOPRAZOLE 40 MG VIAL IV SCH (09:00)
[2019-07-31] MEDS: carvediloL 12.5 MG TABLET PO SCH ×2 (09:16→21:39)
[2019-07-31] MEDS: ESCITALOPRAM 10 MG TABLET PO SCH (09:16)
[2019-07-31] MEDS: DOCUSATE SODIUM 100 MG CAPSULE PO SCH ×2 (09:16→21:39)
[2019-07-31] MEDS: POTASSIUM CHLORIDE 10 MEQ TABLET PO SCH (09:16)
[2019-07-31] MEDS: SIMVASTATIN 10 MG TABLET PO SCH (21:39)
[2019-08-01 06:12] LABS: Basophils % 0.3 % (0.0-0.8); Eosinophils % 0.5 % (0.00-10.9); Immature Granulocytes % 0.7 %; Immature Granulocytes Absolute 0.05 #; Lymphocytes # 1.6 10*3/uL (1.4-4.0); Lymphocytes % 20.8 % (21.3-54.2); Mean Corpuscular HGB Conc 31.7 GM/DL (32-36); Mean Corpuscular Volume 91.6 FL (87-102); Mean Platelet Volume 9.9 FL (9.6-12.0); Monocytes % 9.3 % (1.7-12.7); NRBC # 0.02 10*3/uL; Neutrophils % 68.4 % (38.7-73.9); Platelet Count 227 T/CUMM (130-400); Red Blood Count 1.79 MC/CUMM (3.8-5.5); Red Cell Distribution Width 15.5 % (9.3-17.3); White Blood Count 7.6 T/CUMM (4-12)
[2019-08-01 06:14] LABS: Hematocrit 16.4 VOL% (35.7-47.0); Hemoglobin 5.2 GM/DL (12.0-16.0)
[2019-08-01] MEDS ORDERED: SODIUM CHLORIDE 0.9% 1,000 ML IV PRN (07:20)
[2019-08-01] MEDS: SODIUM CHLORIDE 0.9% 1,000 ML IV SCH ×2 (09:30→19:30)
[2019-08-01] MEDS ORDERED: ONDANSETRON 4 MG/2 ML VIAL ONE (10:00)
[2019-08-01] MEDS ORDERED: propofoL 200 MG/20 ML VIAL IV ONE (10:00)
[2019-08-01] MEDS ORDERED: ETOMIDATE 20 MG/10 ML VIAL IV ONE (10:00)
[2019-08-01] MEDS ORDERED: LIDOCAINE 2% 5 ML VIAL ONE (10:00)
[2019-08-01] MEDS ORDERED: PHENYLEPHRINE 1 MG/10 ML SYRINGE IV ONE (10:00)
[2019-08-01] MEDS: LACTATED RINGERS 1,000 ML IV SCH (10:50)
[2019-08-01] MEDS ORDERED: BISACODYL 5 MG TABLET PO ONE (12:00)
[2019-08-01] MEDS: DOCUSATE SODIUM 100 MG CAPSULE PO SCH ×2 (12:29→21:34)
[2019-08-01] MEDS: PANTOPRAZOLE 40 MG VIAL IV SCH ×2 (12:29→22:40)
[2019-08-01] MEDS: POTASSIUM CHLORIDE 10 MEQ TABLET PO SCH (12:29)
[2019-08-01] MEDS: ESCITALOPRAM 10 MG TABLET PO SCH (12:30)
[2019-08-01] MEDS: carvediloL 12.5 MG TABLET PO SCH ×2 (12:31→21:34)
[2019-08-01] MEDS ORDERED: POLYETHYLENE GLYCOL POWDER 255 GM BOTTLE PO ONE (18:00)
[2019-08-01] MEDS ORDERED: MAGNESIUM CITRATE 300 ML BOTTLE PO ONE (21:00)
[2019-08-01] MEDS: ACETAMINOPHEN 325 MG TABLET PO PRN (21:33)
[2019-08-01] MEDS: SIMVASTATIN 10 MG TABLET PO SCH (21:33)
[2019-08-01] MEDS ORDERED: PROMETHAZINE 25 MG/1 ML VIAL IM PRN (23:56)
[2019-08-01] MEDS ORDERED: FUROSEMIDE 40 MG/4 ML VIAL IV ONE (23:56)
[2019-08-02] MEDS: SODIUM CHLORIDE 0.9% 1,000 ML IV SCH ×3 (03:30→13:20)
[2019-08-02 04:36] LABS: Basophils % 0.3 % (0.0-0.8); Eosinophils % 0.4 % (0.00-10.9); Hematocrit 24.8 VOL% (35.7-47.0); Hemoglobin 8.2 GM/DL (12.0-16.0); Immature Granulocytes % 0.4 %; Immature Granulocytes Absolute 0.04 #; Lymphocytes # 1.5 10*3/uL (1.4-4.0); Lymphocytes % 15.2 % (21.3-54.2); Mean Corpuscular HGB Conc 33.1 GM/DL (32-36); Mean Corpuscular Volume 89.5 FL (87-102); Mean Platelet Volume 10.3 FL (9.6-12.0); Monocytes % 7.7 % (1.7-12.7); NRBC # 0.02 10*3/uL; Platelet Count 238 T/CUMM (130-400); Red Blood Count 2.77 MC/CUMM (3.8-5.5); Red Cell Distribution Width 15.2 % (9.3-17.3); White Blood Count 9.7 T/CUMM (4-12)
[2019-08-02 04:43] LABS: INR 0.9; PT Patient Result 10.2 SECS (9.8-11.9)
[2019-08-02 04:57] LABS: Alanine Aminotransferase < 9 U/L (13-56); Albumin 2.4 G/DL (3.4-5.0); Alkaline Phosphatase 76 U/L (45-117); Aspartate Amino Transferase 14 U/L (0-37); Blood Urea Nitrogen 16 MG/DL (7-18); Calcium 8.1 MG/DL (8.5-10.1); Estimated Glom Filtration Rate 69 ML/MIN; Glucose 102 MG/DL (74-106); Total Protein 5.4 G/DL (6.4-8.3)
[2019-08-02] MEDS: POTASSIUM CHLORIDE RIDER 10 MEQ in PREMIX 1 EACH IV PRN ×5 (06:33→13:30)
[2019-08-02] MEDS: LACTATED RINGERS 1,000 ML IV SCH ×2 (08:00→08:52)
[2019-08-02] MEDS ORDERED: POTASSIUM CHLORIDE RIDER 100 ML IV ONE (10:08)
[2019-08-02] MEDS: PANTOPRAZOLE 40 MG VIAL IV SCH ×2 (10:14→20:46)
[2019-08-02] MEDS: ESCITALOPRAM 10 MG TABLET PO SCH (10:14)
[2019-08-02] MEDS: DOCUSATE SODIUM 100 MG CAPSULE PO SCH ×2 (10:14→20:12)
[2019-08-02] MEDS: POTASSIUM CHLORIDE 10 MEQ TABLET PO SCH (10:14)
[2019-08-02] MEDS: carvediloL 12.5 MG TABLET PO SCH ×2 (10:15→20:12)
[2019-08-02] MEDS: ACETAMINOPHEN 325 MG TABLET PO PRN (20:11)
[2019-08-02] MEDS: SIMVASTATIN 10 MG TABLET PO SCH (20:12)
[2019-08-03] MEDS: SODIUM CHLORIDE 0.9% 1,000 ML IV SCH ×2 (01:07→05:20)
[2019-08-03] MEDS: PANTOPRAZOLE 40 MG VIAL IV SCH ×2 (09:49→20:55)
[2019-08-03] MEDS: POTASSIUM CHLORIDE 10 MEQ TABLET PO SCH (09:50)
[2019-08-03] MEDS: carvediloL 12.5 MG TABLET PO SCH ×2 (09:50→20:55)
[2019-08-03] MEDS: LACTATED RINGERS 1,000 ML IV SCH ×2 (09:50)
[2019-08-03] MEDS: ESCITALOPRAM 10 MG TABLET PO SCH (09:50)
[2019-08-03] MEDS: DOCUSATE SODIUM 100 MG CAPSULE PO SCH ×2 (09:50→20:55)
[2019-08-03] MEDS ORDERED: SODIUM CHLORIDE 0.9% 1,000 ML IV SCH (12:00)
[2019-08-03 12:17] LABS: Basophils % 0.3 % (0.0-0.8); Eosinophils # 0.2 10*3/uL (0.0-0.87); Eosinophils % 1.9 % (0.00-10.9); Hematocrit 26.4 VOL% (35.7-47.0); Hemoglobin 8.2 GM/DL (12.0-16.0); Immature Granulocytes % 0.5 %; Immature Granulocytes Absolute 0.05 #; Lymphocytes # 1.2 10*3/uL (1.4-4.0); Lymphocytes % 12.2 % (21.3-54.2); Mean Corpuscular HGB Conc 31.1 GM/DL (32-36); Mean Corpuscular Volume 94.3 FL (87-102); Mean Platelet Volume 8.8 FL (9.6-12.0); Monocytes % 6.7 % (1.7-12.7); Neutrophils % 78.4 % (38.7-73.9); Platelet Count 258 T/CUMM (130-400); Red Cell Distribution Width 15.1 % (9.3-17.3); White Blood Count 10.2 T/CUMM (4-12)
[2019-08-03 12:28] LABS: INR 0.9; PT Patient Result 10.2 SECS (9.8-11.9); Partial Thromboplastin Time 25.9 SECS (23.9-33.8)
[2019-08-03 12:51] LABS: Albumin 2.6 G/DL (3.4-5.0); Bilirubin,Total 0.8 MG/DL (0.2-1.0); Calcium 8.1 MG/DL (8.5-10.1); Osmolality,Calculated 277.4 MOS/KG (273-304); Total Protein 5.8 G/DL (6.4-8.3)
[2019-08-03] MEDS: POTASSIUM CHLORIDE RIDER 10 MEQ in PREMIX 1 EACH IV SCH ×3 (14:12→17:23)
[2019-08-03] MEDS: SODIUM CHLOR 0.45% KCL 20 MEQ 20 MEQ/1,000 ML BAG IV SCH (16:13)
[2019-08-03] MEDS: ASPIRIN EC 81 MG TABLET PO SCH (17:22)
[2019-08-03] MEDS: SIMVASTATIN 10 MG TABLET PO SCH (20:55)
[2019-08-04] MEDS: SODIUM CHLOR 0.45% KCL 20 MEQ 20 MEQ/1,000 ML BAG IV SCH ×3 (03:08→15:27)
[2019-08-04 05:07] LABS: Basophils % 0.3 % (0.0-0.8); Eosinophils # 0.1 10*3/uL (0.0-0.87); Hematocrit 24.4 VOL% (35.7-47.0); Hemoglobin 7.7 GM/DL (12.0-16.0); Immature Granulocytes % 0.6 %; Immature Granulocytes Absolute 0.06 #; Lymphocytes # 1.5 10*3/uL (1.4-4.0); Lymphocytes % 14.1 % (21.3-54.2); Mean Corpuscular HGB Conc 31.6 GM/DL (32-36); Mean Corpuscular Volume 91.7 FL (87-102); Mean Platelet Volume 9.5 FL (9.6-12.0); Monocytes % 8.2 % (1.7-12.7); Neutrophils % 75.8 % (38.7-73.9); Platelet Count 270 T/CUMM (130-400); Red Blood Count 2.66 MC/CUMM (3.8-5.5); Red Cell Distribution Width 14.8 % (9.3-17.3); White Blood Count 10.3 T/CUMM (4-12)
[2019-08-04 05:49] LABS: Albumin 2.5 G/DL (3.4-5.0); Bilirubin,Total 0.5 MG/DL (0.2-1.0); Calcium 8.3 MG/DL (8.5-10.1); Osmolality,Calculated 275.5 MOS/KG (273-304); Total Protein 5.5 G/DL (6.4-8.3)
[2019-08-04] MEDS: PANTOPRAZOLE 40 MG VIAL IV SCH (09:04)
[2019-08-04] MEDS: DOCUSATE SODIUM 100 MG CAPSULE PO SCH (09:04)
[2019-08-04] MEDS: ESCITALOPRAM 10 MG TABLET PO SCH (09:04)
[2019-08-04] MEDS: POTASSIUM CHLORIDE 10 MEQ TABLET PO SCH (09:04)
[2019-08-04] MEDS: carvediloL 12.5 MG TABLET PO SCH (09:04)
[2019-08-04] MEDS: ASPIRIN EC 81 MG TABLET PO SCH (09:04)
[2019-08-04 14:55] LABS: Basophils % 0.2 % (0.0-0.8); Eosinophils # 0.1 10*3/uL (0.0-0.87); Eosinophils % 1.2 % (0.00-10.9); Hematocrit 25.3 VOL% (35.7-47.0); Hemoglobin 7.9 GM/DL (12.0-16.0); Immature Granulocytes % 0.6 %; Immature Granulocytes Absolute 0.06 #; Lymphocytes # 1.3 10*3/uL (1.4-4.0); Lymphocytes % 12.2 % (21.3-54.2); Mean Corpuscular HGB Conc 31.2 GM/DL (32-36); Mean Corpuscular Volume 93.4 FL (87-102); Mean Platelet Volume 9.1 FL (9.6-12.0); Monocytes % 7.6 % (1.7-12.7); Neutrophils % 78.2 % (38.7-73.9); Platelet Count 261 T/CUMM (130-400); Red Blood Count 2.71 MC/CUMM (3.8-5.5); White Blood Count 10.4 T/CUMM (4-12)
[2019-08-04 17:19] VITALS: BP 115/64
== END 2019-08-04 17:50 | disposition home or self-care (01) | DRG 813 ==
LOC: EDUNIT# → EDBD → N.ED 19:22 → N.EDINP 20:56 → N.CC 21:15 → N.5E 08-03 00:34 → N.TELEN 08-03 11:29
PROVIDERS: ADMIT Family Medicine; ATTEND Family Medicine